=== PATIENT | male | born 1965 | race Caucasian/White ===

== ENCOUNTER 2017-11-29 17:08 | Inpatient (IN) | payer OTHER, MEDICAID ==
[~2017-11-29] VITALS: Ht 170.2 cm; Wt 104.4 kg
[2017-11-29 17:14] VITALS: Ht 170.2 cm; Wt 104.4 kg
[2017-11-29 18:17] LABS: UA SPECIFIC GRAVITY >=1.030 (1.005-1.035); microscopic required? YES; urine erythrocyte NEGATIVE (NEGATIVE)
[2017-11-29 19:10] LABS: BASOPHIL % 0.3 % (0-2); PLATELET COUNT 220 x10^3mcL (130-400); RED CELL DISTRIBUTION WIDTH 13.4 % (11.5-14.5)
[2017-11-29 19:18] LABS: CALCIUM 8.9 mg/dL (8.5-10.1); CARBON DIOXIDE 27.1 mmol/L (21-32); CHLORIDE SERUM 104 mmol/L (98-107); CREATININE SERUM 0.7 mg/dL (0.7-1.3); GFR1 > 60 mL/min; GLUCOSE SERUM 110 mg/dL (74-106); POTASSIUM SERUM 3.6 mmol/L (3.5-5.1); SODIUM SERUM 142 mmol/L (136-145)
[2017-11-29 19:23] LABS: ALBUMIN 3.8 g/dL (3.4-5.0); ALKALINE PHOSPHATASE 62 U/L (46-116); ALT/SGPT 20 U/L (16-63); AST/SGOT 12 U/L (15-37); BILIRUBIN TOTAL 1.2 mg/dL (0.20-1.00); LIPASE 122 IU/L (73-393); TOTAL PROTEIN, SERUM 7.4 g/dL (6.4-8.2)
[2017-11-29 21:12] VITALS: BP 115/71
[2017-11-29 21:18] LABS: CHOLESTEROL/HDL RATIO 3.7
[2017-11-29 21:19] LABS: AMPHETAMINE QUAL UR NONE DETECTED (NEG <=1000)
[2017-11-29 21:24] LABS: T3 TOTAL 1.07 ng/mL
[2017-11-29 21:42] LABS: FREE T4 0.99 ng/dL (0.76-1.46); FREE THYROXINE INDEX 2.3 ug/dL (1.4-4.5); T4(THYROXINE) 6.5 ug/dL (4.7-13.3)
[2017-11-30 05:43] VITALS: BP 108/66
[2017-11-30 05:52] LABS: BASOPHIL % 0.5 % (0-2); PLATELET COUNT 190 x10^3mcL (130-400); RED CELL DISTRIBUTION WIDTH 13.2 % (11.5-14.5)
[2017-11-30 06:20] LABS: CALCIUM 8.3 mg/dL (8.5-10.1); CARBON DIOXIDE 29.1 mmol/L (21-32); CHLORIDE SERUM 106 mmol/L (98-107); CREATININE SERUM 0.6 mg/dL (0.7-1.3); GFR1 > 60 mL/min; GLUCOSE SERUM 102 mg/dL (74-106); PHOSPHOROUS 3.6 mg/dL (2.5-4.9); POTASSIUM SERUM 3.5 mmol/L (3.5-5.1); SODIUM SERUM 141 mmol/L (136-145)
[2017-11-30 09:24] VITALS: BP 132/78
[2017-11-30 13:01] VITALS: BP 128/82
[2017-11-30 17:26] VITALS: BP 107/67
[2017-11-30 20:57] VITALS: BP 118/69
[2017-12-01 05:40] VITALS: BP 117/66
[2017-12-01 06:02] LABS: BASOPHIL % 0.1 % (0-2); PLATELET COUNT 216 x10^3mcL (130-400); RED CELL DISTRIBUTION WIDTH 13.2 % (11.5-14.5)
[2017-12-01 06:35] LABS: CALCIUM 8.6 mg/dL (8.5-10.1); CARBON DIOXIDE 29.4 mmol/L (21-32); CHLORIDE SERUM 101 mmol/L (98-107); CREATININE SERUM 0.6 mg/dL (0.7-1.3); GFR1 > 60 mL/min; GLUCOSE SERUM 103 mg/dL (74-106); MAGNESIUM 2.1 mg/dL (1.8-2.4); PHOSPHOROUS 3.4 mg/dL (2.5-4.9); POTASSIUM SERUM 3.8 mmol/L (3.5-5.1); SODIUM SERUM 140 mmol/L (136-145)
[2017-12-01 09:11] VITALS: BP 117/66
[2017-12-01] MEDS ORDERED: APAP/HYDROCODON1 T13 PO (09:36)
[2017-12-01] MEDS ORDERED: COL100 PO (09:38)
[2017-12-01] MEDS ORDERED: IBUPROFEN400 MG PO (09:41)
[2017-12-01 09:59] VITALS: BP 117/70
== END 2017-12-01 12:06 | disposition home or self-care (01) | DRG 350 ==
LOC: ED 17:08 → MU 20:18 → DU 20:18 → MU 11-30 11:52
PROVIDERS: Emergency Medicine; Family Medicine; Surgery
PROC: 0YU50JZ Supplement Right Inguinal Region with Synthetic Substitute, Open Approach (ICD-10-PCS; principal; 2017-11-30 10:00)
DX: K40.30 Unilateral inguinal hernia, with obstruction, without gangrene, not specified as recurrent (principal); N17.0 Acute kidney failure with tubular necrosis; N43.3 Hydrocele, unspecified; E86.0 Dehydration; E83.51 Hypocalcemia; K80.20 Calculus of gallbladder without cholecystitis without obstruction; K76.0 Fatty (change of) liver, not elsewhere classified; D73.89 Other diseases of spleen; N28.89 Other specified disorders of kidney and ureter; I51.7 Cardiomegaly; F79 Unspecified intellectual disabilities; E66.9 Obesity, unspecified; Z68.36 Body mass index [BMI] 36.0-36.9, adult
CPT/HCPCS: 83880; 84439; 94150; C1781; J0330; J0690; J1170; J2405; J2704; J2710; J3010; J3490; J7030; J7120; Q0092